=== PATIENT | female | born 1985 | race Hispanic/Latino ===

== ENCOUNTER 2018-05-17 09:45 | Inpatient (IN) | payer OTHER ==
[2018-05-17 10:47] VITALS: BMI 31.2
[2018-05-17] MEDS ORDERED: HYDROcodone/Acetaminophen 5/325 mg Tablet PO PRN ×2 (11:28→21:43)
[2018-05-17] MEDS ORDERED: Methylergonovine 0.2 MG/ML VIAL IM PRN ×2 (11:28→21:43)
[2018-05-17] MEDS ORDERED: NS / Oxytocin 40 units/1000ml 1,000 ML IV PRN (11:28)
[2018-05-17] MEDS ORDERED: Lidocaine 1% (PF) 30 ML VIAL SC PRN (11:28)
[2018-05-17] MEDS ORDERED: Misoprostol 200 MCG TAB PR PRN (11:28)
[2018-05-17] MEDS ORDERED: Ondansetron PF 4 MG/2 ML Vial IVP PRN ×3 (11:28→21:43)
[2018-05-17] MEDS ORDERED: Promethazine HCl 25 MG/ML VIAL IM PRN ×2 (11:28→15:19)
[2018-05-17] MEDS ORDERED: Diphenoxylate HCl/Atropine Tablet PO PRN ×2 (11:28)
[2018-05-17] MEDS ORDERED: Carboprost 250 MCG/ML AMP IM PRN (11:28)
[2018-05-17] MEDS ORDERED: Ibuprofen 800 MG TAB PO PRN (11:28)
--- NOTE | 2018-05-17 12:34 | PDOC.LDHP ---
Labor and Delivery H&P Chief complaint: contractions HPI: She woke up in the night not feeling well and she started to have irregular contractions. She denies LOF, VB. the baby is moving normally. By the time she arrived to the hospital her contractions have gotten much stronger and closer together. Current gestational age (weeks): 38 Due date: 05/28/18 Dating criteria: last menstrual period Grav: 4 Para: 3 OB History Details: P1 no epidufal P2 no epidural, shoulder dystocia P3 no epidural, shoulder dystocia Current complications: gestational diabetes (A1 - diet controlled) Abnormal US findings: No Current medications: pre- vitamins Allergies/Adverse Reactions: Allergies Allergy/AdvReac Type Severity Reaction Status Date / Time No Known Allergies Allergy Verified 05/17/18 10:52 Social history: none - Physical Exam Vital signs reviewed and normal: yes General: breathing through contractions Heart: RRR Lungs: nonlabored breathing Abdomen: gravid Extremeties: trace edema FHT: category 1 Ina contractions every: q5-6 - Vaginal Exam cm dilated: 6 Effacement: 90% Station: 0 - OB Labs Blood type: O RH: positive Antibody Screen: negative HIV: negative RPR: negative HEPSAg: negative 1 hour GCT: positive 3 hour GTT: Positive GBS: negative Urine drug screen: negative Rubella: immune - Assessment L&D Assessment: term patient in labor - Plan Plan: admit to L&D (low intervention protocol)
[2018-05-17 12:53] LABS: Hemoglobin 11.6 g/dL (12.0-16.0); Mean Corpuscular HGB CONC 33.3 g/dL (32.0-36.0); Mean Corpuscular Hemoglobin 29.7 pg (27.0-31.0); Mean Corpuscular Volume 89.3 fL (78.0-98.0); Platelet Count 247 thou/uL (130-400); RBC Distribution Width 13.1 % (11.5-14.5); White Blood Cell (WBC) Count 8.4 thou/uL (4.8-10.8)
[2018-05-17 13:33] LABS: HBSAg Index 0.26 S/CO (0-0.99); Hep B Surf Ag Non-Reactive S/CO (NonReactive); Syphilis Antibody Nonreactive (Nonreactive); Syphilis Antibody Index 0.03 S/CO (<1.00 Non-Reactive)
[2018-05-17] MEDS ORDERED: Fentanyl 4 mcg/Bup 0.1% Cadd 100 ML ONE (14:37)
[2018-05-17] MEDS: Lactated Ringer's 1,000 ML IV PRN ×2 (14:45→16:36)
[2018-05-17] MEDS ORDERED: Bupivacaine 0.5% 10 ML VIAL ONE (14:48)
[2018-05-17] MEDS ORDERED: Fentanyl 100 MCG/2 ML VIAL ONE (14:48)
[2018-05-17] MEDS ORDERED: Eucerin (Mineral Oil/Petrolatum,White) 30 gm Jar TOP PRN (15:19)
[2018-05-17] MEDS ORDERED: diphenhydrAMINE 50 MG/ML VIAL IVP PRN (15:19)
[2018-05-17] MEDS ORDERED: Naloxone HCl 0.4 mg/ml Vial IVP PRN ×2 (15:19)
[2018-05-17] MEDS ORDERED: ePHEDrine/0.9% NaCl/PF SYRINGE 50 mg/10 ml SLOW IVP PRN (15:19)
[2018-05-17] MEDS ORDERED: Acetaminophen 325 MG TAB PO PRN (15:19)
[2018-05-17] MEDS ORDERED: Lactated Ringer's 500 ML IV PRN (15:19)
[2018-05-17] MEDS ORDERED: Fentanyl 100 MCG/2 ML VIAL I-THECAL ONE (15:23)
[2018-05-17] MEDS ORDERED: Bupivacaine 0.25% 10 ML VIAL EPIDURAL ONE (15:23)
[2018-05-17] MEDS ORDERED: Fentanyl 4 mcg/Bupivacaine 0.1% Cassette 100 ML EPIDURAL SCH (15:30)
[2018-05-17] MEDS ORDERED: Communication Order-Pharmacy FS SCH (15:30)
[2018-05-17] MEDS ORDERED: Butorphanol Tartrate 1 MG/ML VIAL ONE (18:22)
--- NOTE | 2018-05-17 19:43 | PDOC.OPDEL ---
OB Operative/Delivery Note Delivery Dr/Surgeon: Franklin Alberto CNM Pre-Delivery Diagnosis: active labor Procedure/Post Delivery Dx: spontaneous vaginal delivery Weeks gestation: 38 Anesthesia: epidural - Findings A Sex: female Weight: 8 lb 5 oz - 1 min: 7 - 5 min: 9 - Additional Findings/Plan Placenta delivered: manual removal (following retained placenta x 30 mins) Repaired Obstetrical Laceration: none Estimated blood loss: 400mL Post delivery plan: routine recovery
[2018-05-17] MEDS ORDERED: Bisacodyl 10 MG SUPP PR PRN (21:43)
[2018-05-17] MEDS ORDERED: Milk Of Magnesia 30 ML UDCUP PO PRN (21:43)
[2018-05-17] MEDS ORDERED: Misoprostol 200 MCG TAB VAG PRN (21:43)
[2018-05-17] MEDS ORDERED: Benzocaine/Menthol 20-0.5% 60 ML CAN TOP PRN (21:43)
[2018-05-17] MEDS ORDERED: NS / Oxytocin 40 units/1000ml 1,000 ML IV SCH (22:00)
[2018-05-17] MEDS ORDERED: Docusate Calcium (SURFAK) 240 MG CAP PO SCH (22:00)
[2018-05-18] MEDS: HYDROcodone/Acetaminophen 5/325 mg Tablet PO PRN ×3 (05:12→19:02)
[2018-05-18] MEDS: Ibuprofen 800 MG TAB PO SCH ×3 (05:54→21:35)
[2018-05-18 08:04] LABS: Hemoglobin 9.2 g/dL (12.0-16.0); Mean Corpuscular HGB CONC 33.4 g/dL (32.0-36.0); Mean Corpuscular Hemoglobin 30.2 pg (27.0-31.0); Mean Corpuscular Volume 90.3 fL (78.0-98.0); Mean Platelet Volume 8.1 fL (7.4-10.4); Platelet Count 196 thou/uL (130-400); Red Blood Cell (RBC) Count 3.04 mill/uL (4.20-5.40); White Blood Cell (WBC) Count 11.8 thou/uL (4.8-10.8)
[2018-05-18] MEDS ORDERED: Measles/Mumps/Rubella 10 MCG/0.5 ML VIAL SC ONE (09:00)
[2018-05-18] MEDS ORDERED: Adacel (T-DAP) 0.5 ML SYRINGE IM ONE (09:00)
[2018-05-18] MEDS: Prenatal Vitamin 1 TAB PO SCH (09:37)
[2018-05-18] MEDS: Ferrous Sulfate 325 MG TAB PO SCH ×2 (09:37→19:04)
[2018-05-18] MEDS: Docusate Calcium (SURFAK) 240 MG CAP PO SCH ×2 (09:37→21:35)
[2018-05-19] MEDS: Ibuprofen 800 MG TAB PO SCH (05:48)
[2018-05-19 08:52] VITALS: BP 111/59; TEMP 98.1
[2018-05-19] MEDS: Docusate Calcium (SURFAK) 240 MG CAP PO SCH (09:20)
[2018-05-19] MEDS: Ferrous Sulfate 325 MG TAB PO SCH (09:20)
[2018-05-19] MEDS: Prenatal Vitamin 1 TAB PO SCH (09:21)
--- NOTE | 2018-05-19 09:52 | PDOC.PP ---
Post Progress Note Post Day #: 1 Subjective: Patient is very sore, has only been up to the restroom twice overnight and is having some continued numbness in her left leg. She would like to stay another night. PO intake tolerated: yes Flatus: yes Ambulation: yes (with assistance from the RN) Vital Signs (12 hours) Temp Pulse Resp BP Pulse Ox 05/19/18 08:00 98.1 F 83 18 111/59 L 98 Weight Weight 160 lb - Physical Examination General: NAD Respiratory: non-labored breathing Abdominal: lochia (moderate) Extremities: negative homans (B) Skin: no rash Neurological: no gross focal deficits Psychiatric: A&Ox3 Result Diagrams: 05/18/18 07:08 Additional Labs: Post Labs Blood Type O POSITIVE 05/17/18 12:35 Hep Bs Antigen Non-Reactive S/CO (NonReactive) 05/17/18 12:35 (1) (spontaneous vaginal delivery) Code(s): O80 - ENCOUNTER FOR FULL-TERM UNCOMPLICATED DELIVERY Status: Acute (2) GDM (gestational diabetes mellitus) Code(s): O24.419 - GESTATIONAL DIABETES MELLITUS IN , UNSP CONTROL Status: Acute (3) Retained placenta, delivered Code(s): O73.0 - RETAINED PLACENTA WITHOUT HEMORRHAGE Status: Acute - Assessment/Plan A: s/p P: stay overnight. discharge home tomorrow
[2018-05-19] MEDS: HYDROcodone/Acetaminophen 5/325 mg Tablet PO PRN (11:48)
== END 2018-05-19 12:55 | disposition home or self-care (01) | DRG 807 ==
LOC: L&D/OP 09:45 → L&D-LIB 11:07 → L&D 16:33 → 3SW 23:36
PROVIDERS: ADMIT Obstetrics & Gynecology; ATTEND Obstetrics & Gynecology
PROC: 10E0XZZ Delivery of Products of Conception, External Approach (ICD-10-PCS; principal; 2018-05-17)
PROC: 10D17Z9 Manual Extraction of Products of Conception, Retained, Via Natural or Artificial Opening (ICD-10-PCS; 2018-05-17)
DX: O24.420 Gestational diabetes mellitus in childbirth, diet controlled (principal); Z37.0 Single live birth; O73.1 Retained portions of placenta and membranes, without hemorrhage; O76 Abnormality in fetal heart rate and rhythm complicating labor and delivery; Z3A.38 38 weeks gestation of pregnancy
CPT/HCPCS: 36415; 51702; 85027; 86780; 86850; 86900; 86901; 87340; 99285; J0595; J2210; J3010; J3490